=== PATIENT | male | born 1965 | race African-American/Black ===

== ENCOUNTER 2023-11-01 08:53 | Emergency (ER) | payer SELFPAY ==
--- NOTE | 2023-11-01 10:48 | RAD REPORT ---
EXAM DESCRIPTION: US - Extrem Venous W Compress Thomas - 11/01/2023 10:27 am CLINICAL HISTORY: PAIN COMPARISON: Lower Extremity Arterial Bilat dated 11/01/2023 TECHNIQUE: Real-time sonographic evaluation of the lower extremity deep venous systems was performed using color Doppler, grayscale, and compression. FINDINGS: Bilateral lower extremities. Normal compressibility, flow augmentation, phasic flow and spontaneous flow is identified in both the right lower extremity deep venous systems. No intraluminal filling defects seen. In the left lower extremity, a superficial tributary of the left femoral vein is incompletely lennie sible and has an intraluminal filling defect. No deep venous thrombosis identified within the other interrogated vessels. IMPRESSION: No DVT in the right lower lower extremity. In the left lower extremity, a superficial tr ibutary of the femoral vein is thrombosed. No deep venous thrombosis in the left lower extremity iden tified, however.
--- NOTE | 2023-11-01 10:53 | RAD REPORT ---
EXAM DESCRIPTION: US - Lower Extremity Arterial Bilat - 11/01/2023 10:27 am CLINICAL HISTORY: Diminished pulses, bilateral leg pain COMPARISON: None FINDINGS: Color Doppler, grayscale, and spectral analysis was performed of the bilateral lower extr emity arteries. Left lower extremity: Triphasic flow present in the left common femoral artery through the mid left s uperficial femoral artery. There is likely occlusion as there is monophasic flow in the distal left S FA. The popliteal artery, posterior tibial artery, and dorsalis pedis arteries demonstrate low flow a nd monophasic waveforms. Right lower extremity: Biphasic flow with the right common femoral and right superficial femoral reanna ry. Monophasic flow in the mid popliteal artery. No flow identified within the distal right popliteal artery, posterior tibial artery, and right dorsalis pedis artery. IMPRESSION: 1. Right lower extremity: Absent flow in the right distal popliteal artery, posterior ti bial artery, and dorsalis pedis artery. There is likely occlusion either at the distal SFA or proxima l popliteal artery. 2. Left lower extremity: Monophasic flow in the distal SFA and downstream vessels likely secondary to a high-grade stenosis at the level of the distal SFA.
[2023-11-01 11:07] LABS: Absolute Lymphocytes (CBC) 1.7 K/uL (0.7-4.9); Hematocrit 48.6 % (39.6-49.0); Lymphocytes % 22.7 % (15.3-44.8); MCV 88.4 fL (80-100); MPV 7.3 fL (7.6-11.3); Platelets 284 thou/uL (152-406); RBC Red Blood Cell Count 5.49 M/uL (4.33-5.43)
[2023-11-01 11:21] LABS: Protime INR 1.1
[2023-11-01 11:22] LABS: Potassium 4.1 mEq/L (3.5-5.1)
--- NOTE | 2023-11-01 11:28 | EDPHYS ---
Physician Documentation [facility] Name: Aubrey Davila Age: 58 yrs Sex: Male : 1965 Arrival Date: 11/01/2023 Time: 08:53 Bed 12 Private MD: ED Physician Contreras Chilel HPI: 11/01 11:19 This 58 yrs old Black Male presents to ER via EMS with complaints of leg pain. rn 11:19 The patient presents with pain, that is acute. The complaints affect the left calf, rn right calf. Onset: The symptoms/episode began/occurred 2 day(s) ago. Modifying factors: The symptoms are alleviated by nothing. the symptoms are aggravated by movement. Associated signs and symptoms: Pertinent negatives fever, rash, warmth, weakness. Severity of symptoms: At their worst the symptoms were moderate, in the emergency department the symptoms are unchanged. The patient has not experienced similar symptoms in the past. Patient reports 2 days of bilateral lower extremity pain, worse with exertion, worse in bilateral calves, worse right leg. Denies focal trauma. No weakness. Seen by PCP recently and told it was arthritis after negative x-rays. Patient is a diabetic and told could be polyneuropathy as well.. Historical: - Allergies: 09:13 No Known Allergies; hb - Immunization history:: Adult Immunizations up to date. - Social history:: Smoking status: Patient denies any tobacco usage or history of. - Family history:: not pertinent. - Hospitalizations: : No recent hospitalization is reported. ROS: 11:19 Constitutional: Negative for fever, chills, and weight loss, Cardiovascular: Negative rn for chest pain, palpitations, and edema, Respiratory: Negative for shortness of breath, cough, wheezing, and pleuritic chest pain, Abdomen/GI: Negative for abdominal pain, nausea, vomiting, diarrhea, and constipation, MS/Extremity: Positive for bilateral lower extremity pain Skin: Negative for injury, rash, and discoloration, Neuro: Negative for headache, weakness, numbness, tingling, and seizure, Exam: 11:19 Constitutional: This is a well developed, well nourished patient who is awake, alert, rn and in no acute distress. Cardiovascular: Regular rate and rhythm. No pulse deficits. Respiratory: No increased work of breathing, no retractions or nasal flaring. Abdomen/GI: Soft, non-tender Skin: Cool distal lower extremities, no cyanosis MS/ Extremity: No palpable pulses bilateral dorsalis pedis or posterior tibial. No cyanosis Neuro: Awake and alert, GCS 15 Vital Signs: 09:12 BP 146 / 86; Pulse 64; Resp 16; Temp 98.1; Pulse Ox 100% on R/A; Pain 10/10; hb 10:05 BP 142 / 82; Pulse 66; Resp 15; Pulse Ox 99% ; hb 11:41 Weight 84 kg (M); cm10 13:07 BP 158 / 88; Pulse 61; Resp 18; Pulse Ox 100% on R/A; cm10 09:12 Pain Scale: Adult hb MDM: 09:02 Patient medically screened. rn 11:19 Differential diagnosis: Arterial occlusion, arterial insufficiency, claudication, rn polyneuropathy. Data reviewed: vital signs, nurses notes, lab test result(s), radiologic studies, ultrasound, and as a result, I will admit patient. Consideration of Admission/Observation Patient was admitted/placed on observation. Escalation of care including admission/observation considered. Counseling: I had a detailed discussion with the patient and/or guardian regarding the historical points, exam findings, and any diagnostic results supporting the discharge/admit diagnosis, lab results, radiology results, the need for further work-up and treatment in the hospital, the need to transfer to another facility, for higher level of care, [facility] does not immediately have the required specialist. Special discussion:. ED course: Patient with arterial occlusion at the level of the distal right popliteal artery. Started on heparin and initiated transfer for vascular consultation.. 11:26 ED course: [facility] will accept for transfer, is leaning towards overnight caregiver disease but will wait for callback from hospitalist for transfer.. 11:26 ED course: I personally spent 35 minutes engaged in work directly related to the rn individual patient's care. This does not include any time spent performing procedures. The patient has been deemed critically ill because of acute occlusion and absent blood flow to the right lower extremity, requiring anticoagulation and emergent transfer in order to avoid loss of limb.. 11:54 ED course: Accepted for transfer by hospitalist service. rn 11/01 09:11 Order name: CBC with Diff; Complete Time: 11:14 rn 11/01 09:11 Order name: Basic Metabolic Panel; Complete Time: 11:24 rn 11/01 09:11 Order name: Protime (+inr); Complete Time: 11:24 rn 11/01 09:11 Order name: Ptt, Activated; Complete Time: 11:24 rn 11/01 09:11 Order name: Extrem Venous W Compression Thomas US; Complete Time: 11:14 rn 11/01 09:11 Order name: Lower Extremity Arterial Bilat US; Complete Time: 11:14 rn 11/01 09:11 Order name: IV Start; Complete Time: 11:01 rn Administered Medications: 11:59 Drug: Heparin (DVT/PE- Bolus per protocol) - HEParin IVP 80 units/kg IVP once; Max cm10 8,000 units {Co-Signature: mary (Roseanna Chin RN).} Route: IVP; Site: right hand; 12:25 Follow up: Response: No adverse reaction cm10 11:59 Drug: Heparin (DVT/PE Drip) 18 units/kg/[place] - ([place] [address] units, D5W IV 500 ml) IV cm10 at calculated rate Per protocol; Max initial rate 1800 units/hr {Co-Signature: mary (Roseanna Chin RN).} Route: IV; Rate: calculated rate; Site: right hand; 13:04 Follow up: Response: No adverse reaction; IV Status: Infusion continued upon transfer cm10 Disposition Summary: 11/01/23 11:28 Transfer Ordered Notes: Transfer Location: [facility] rn Reason: Higher level of care rn Condition: Stable rn Problem: new rn Symptoms: are unchanged rn Accepting Physician: (11/01/23 13:08) cm10 Diagnosis - Occlusion of right popliteal artery rn Forms: - Medication Reconciliation Form rn - SBAR form furniture dipper time excluding procedures: 11:26 Critical care time: Bedside Care: 35 minutes. Total time: 35 minutes rn Signatures: Dispatcher [employer] Contreras Meyers MD MD rn Baxter, Heather RN Mirtha Cooper RN RN Roseanna Dunbar RN [id number] Corrections: (The following items were deleted from the chart) 13:08 11:28 Dr. taylor cm10
--- NOTE | 2023-11-01 11:28 | ER ---
Nurse's Notes [facility] Name: Aubrey Davila Age: 58 yrs Sex: Male : 1965 Arrival Date: 11/01/2023 Time: 08:53 Bed 12 Private MD: Diagnosis: Occlusion of right popliteal artery Presentation: 11/01 09:12 Chief complaint: EMS states: Pain in bilateral feet that radiates to calves and thighs hb x 3 days. Coronavirus screen: At this time, the client does not indicate any symptoms associated with coronavirus-19. Ebola Screen: No symptoms or risks identified at this time. Initial Sepsis Screen: Does the patient meet any 2 criteria? No. Patient's initial sepsis screen is negative. Does the patient have a suspected source of infection? No. Patient's initial sepsis screen is negative. Risk Assessment: Do you want to hurt yourself or someone else? Patient reports no desire to harm self or others. Onset of symptoms was October 29, 2023. 09:12 Method Of Arrival: EMS: [facility] hb 09:12 Acuity: RUSS 3 hb Historical: - Allergies: 09:13 No Known Allergies; hb - Immunization history:: Adult Immunizations up to date. - Social history:: Smoking status: Patient denies any tobacco usage or history of. - Family history:: not pertinent. - Hospitalizations: : No recent hospitalization is reported. Screenin:04 [facility] ED Fall Risk Assessment (Adult) Score/Fall Risk Level 0 - 2 = Low Risk hb Oriented to surroundings, Maintained a safe environment. Abuse screen: Denies threats or abuse. Denies injuries from another. Nutritional screening: No deficits noted. Tuberculosis screening: No symptoms or risk factors identified. Assessment: 09:15 General: Appears in no apparent distress. Behavior is calm, cooperative. Pain: Pain hb currently is 10 out of 10 on a pain scale. Neuro: Level of Consciousness is awake, alert, obeys commands, Oriented to person, place, time, situation. Cardiovascular: Patient's skin is warm and dry. Respiratory: Respiratory effort is even, unlabored, Respiratory pattern is regular, symmetrical. GI: No signs and/or symptoms were reported involving the gastrointestinal system. : No signs and/or symptoms were reported regarding the genitourinary system. EENT: No signs and/or symptoms were reported regarding the EENT system. Derm: Skin is pink, warm \T\ dry. Musculoskeletal: Reports bilateral leg pain. 10:00 Reassessment: Patient appears in no apparent distress at this time. Patient and/or hb family updated on plan of care and expected duration. Pain level reassessed. Patient is alert, oriented x 3, equal unlabored respirations, skin warm/dry/pink. 11:00 Reassessment: Patient appears in no apparent distress at this time. Patient and/or hb family updated on plan of care and expected duration. Pain level reassessed. Patient is alert, oriented x 3, equal unlabored respirations, skin warm/dry/pink. 12:14 Reassessment: Report given to REMI Her at [facility]. cm10 12:22 Reassessment: Patient appears in no apparent distress at this time. Patient and/or cm10 family updated on plan of care and expected duration. Pain level reassessed. Patient is alert, oriented x 3, equal unlabored respirations, skin warm/dry/pink. Vital Signs: 09:12 BP 146 / 86; Pulse 64; Resp 16; Temp 98.1; Pulse Ox 100% on R/A; Pain 10/10; hb 10:05 BP 142 / 82; Pulse 66; Resp 15; Pulse Ox 99% ; hb 11:41 Weight 84 kg (M); cm10 13:07 BP 158 / 88; Pulse 61; Resp 18; Pulse Ox 100% on R/A; cm10 09:12 Pain Scale: Adult hb ED Course: 09:02 Patient arrived in ED. bd 09:02 Contreras Chilel MD is Attending Physician. rn 09:13 Triage completed. hb 09:13 Arm band placed on. hb 10:29 Extrem Venous W Compression Thomas US In Process Unspecified. EDMS 10:29 Lower Extremity Arterial Bilat US In Process Unspecified. EDMS 11:01 Protime (+inr) Sent. bc6 11:01 Ptt, Activated Sent. bc6 11:01 Basic Metabolic Panel Sent. bc6 11:01 CBC with Diff Sent. bc6 11:01 Inserted saline lock: 20 gauge in left upper arm, using aseptic technique. Blood bc6 collected. 11:04 No provider procedures requiring assistance completed. hb 11:04 Patient has correct armband on for positive identification. Provided Education on: . hb 13:02 Patient transferred, IV remains in place. cm10 Administered Medications: 11:59 Drug: Heparin (DVT/PE- Bolus per protocol) - HEParin IVP 80 units/kg IVP once; Max cm10 8,000 units {Co-Signature: mary (Roseanna Chin RN).} Route: IVP; Site: right hand; 12:25 Follow up: Response: No adverse reaction cm10 11:59 Drug: Heparin (DVT/PE Drip) 18 units/kg/[place] - ([place] [address] units, D5W IV 500 ml) IV cm10 at calculated rate Per protocol; Max initial rate 1800 units/hr {Co-Signature: mary (Roseanna Chin RN).} Route: IV; Rate: calculated rate; Site: right hand; 13:04 Follow up: Response: No adverse reaction; IV Status: Infusion continued upon transfer cm10 Medication: 11:04 VIS not applicable for this client. Outcome: 11:28 ER care complete, transfer ordered by . remi 13:02 Transferred by ground [facility]. Report given to to [place] [id number] System, [facility], Transfer form completed. 13:02 Condition: stable 13:02 Instructed on the need for transfer, 13:08 Patient left the ED. [facility] Signatures: Dispatcher [employer] EDMS Daiana Be Roman, MD MD rn Baxter, Heather, RN RN Sravani Rothman Clarissa, RN RN Roseanna Cummings RN9
[2023-11-01] MEDS ORDERED: HEPARIN 5000 UNIT/ML 1 ML VIAL ONE (12:01)
[2023-11-01] MEDS ORDERED: HEPARIN/D5W 25,000 UNIT/500 ML BAG IV ONE (12:02)
[2023-11-01 13:13] VITALS: TEMP 98.1
[2023-11-01 13:16] VITALS: BP 158/88; O2SAT 100
== END 2023-11-01 13:08 | disposition short-term general hospital (02) ==
LOC: ER 08:53
DX: I70.8 Atherosclerosis of other arteries (principal)
CPT/HCPCS: 36415; 80048; 85025; 85610; 85730; 93925; 93970; 96365; 99285; J1644